=== PATIENT | female | born 1955 | race Caucasian/White ===

== ENCOUNTER 2019-11-21 09:08 | Day surgery (SDC) | payer MEDICARE, OTHER ==
[~2019-11-21 09:08] MED LIST: Lactated Ringers 1,000 ML IV SCH; Lidocaine 1% 4 ML ONE; Lidocaine 1%/Sod Bicarbonate in NS 8.4% 1 ML Syringe IDERM PRN; Midazolam 1 MG/ML 2 ML SDV ONE; Propofol 200 MG/20 ML SDV ONE; Sodium Chloride 0.9% 10 ML Syringe FLUSH PRN; fentaNYL 100 MCG/2 ML SDV ONE
--- NOTE | 2019-11-21 09:22 | PCM.PREANE ---
Preanesthetic Assessment - Procedure Proposed Procedure: egd and colonoscopy - Anesthesia/Transfusion/Family Hx Anesthesia History: Prior Anesthesia Without Reaction Family History of Anesthesia Reaction: No Transfusion History: No Prior Transfusion(s) - Review of Systems General: Chills (today) Pulmonary: Shortness of Breath (farmers lung), Wheezing, Cough Cardiovascular: No Symptoms Gastrointestinal: No Symptoms Neurological: No Symptoms Other: Reports: Thyroid Problems, Depression, Anxiety - Physical Assessment NPO Status Date: 11/20/19 NPO Status Time: 22:00 Vital Signs: 97.8 16 94-96% 63 158/91 Height: 5 ft 3 in Weight: 66 kg ASA Class: 3 Mental Status: Alert & Oriented x3 Airway Class: Mallampati = 1 Dentition: Reports: Normal Dentition, Broken Tooth/Teeth (some chipped) Thyro-Mental Finger Breadths: 3 Mouth Opening Finger Breadths: 3 ROM/Head Extension: Full Lungs: Clear to Auscultation, Normal Respiratory Effort Cardiovascular: Regular Rate, Regular Rhythm - Allergies Allergies/Adverse Reactions: Allergies Allergy/AdvReac Type Severity Reaction Status Date / Time Sulfa (Sulfonamide AdvReac Nausea and Verified 11/20/19 13:21 Antibiotics) Vomiting - Blood Blood Available: No - Acknowledgements Anesthesia Type Planned: MAC Pt an Appropriate Candidate for the Planned Anesthesia: Yes Alternatives and Risks of Anesthesia Discussed w Pt/Guardian: Yes Pt/Guardian Understands and Agrees with Anesthesia Plan: Yes PreAnesthesia Questionnaire HEENT History: Reports: Allergic Rhinitis Cardiovascular History: Reports: High Cholesterol Respiratory History: Reports: SOB Gastrointestinal History: Reports: None Genitourinary History: Reports: Other (See Below) Other Genitourinary History: RENAL MASS, KIDNEY STONES, URGE INCONTINENCE CANCER REGISTRAR History: Reports: None Musculoskeletal History: Reports: Fibromyalgia, Osteoporosis, Other (See Below) Other Musculoskeletal History: RIGHT WRIST PAIN, BILATERAL WRIST FRACTURE WITH ORIF AND THEN LATER HARDWARE REMOVAL Neurological History: Reports: None Psychiatric History: Reports: Depression Endocrine/Metabolic History: Reports: Hypothyroidism Hematologic History: Reports: None Immunologic History: Reports: None Oncologic (Cancer) History: Reports: None Dermatologic History: Reports: Other (See Below) Other Dermatologic History: LEFT AXILLARY LUMP - Past Surgical History Head Surgeries/Procedures: Reports: None HEENT Surgical History: Reports: None Cardiovascular Surgical History: Reports: None Respiratory Surgical History: Reports: None GI Surgical History: Reports: None Female Surgical History: Reports: Hysterectomy Male Surgical History: Reports: None Endocrine Surgical History: Reports: None Neurological Surgical History: Reports: None Musculoskeletal Surgical History: Reports: Other (See Below) (bilateral wrist surgeries) Oncologic Surgical History: Reports: None Dermatological Surgical History: Reports: None - SUBSTANCE USE Smoking Status *Q: Never Smoker Tobacco Use Within Last Twelve Months: No Second Hand Smoke Exposure: No Days Per Week of Alcohol Use: 0 Recreational Drug Use History: No - HOME MEDS Home Medications: Home Meds Albuterol Sulfate [Proair Hfa] 2 puff INH Q4H PRN 11/20/19 [History] Calcium Carb, Citrate/Vit D3 [Citracal + D ER] 1 tab PO DAILY 11/20/19 [History] Cranberry 500 mg PO DAILY 11/20/19 [History] Fluticasone Propionate [Flonase] 1 dose NASBOTH DAILY 11/20/19 [History] Glucosam/Chond-MSM 2/C/D3/Cyril [Buzydofpvx-Zvaiwxmmasd-ZUM] 1 tab PO DAILY 11/20/19 [History] Lactobacillus Combination No.4 [Probiotic] 1 cap PO DAILY 11/20/19 [History] Lactobacillus Combination No.4 [Probiotic] 2 cap PO DAILY 11/20/19 [History] Levothyroxine 25 mcg PO DAILY 11/20/19 [History] Multivitamin [Daily Multiple Vitamin] 1 tab PO DAILY 11/20/19 [History] Oxybutynin [Oxybutynin ER] 5 mg PO DAILY 11/20/19 [History] Psyllium Seed [Natural Vegetable Powder] 1 dose PO DAILY 11/20/19 [History] Sertraline HCl [Zoloft] 100 mg PO DAILY 11/20/19 [History] Vitamin B Complex [B Complex] 1 tab PO DAILY 11/20/19 [History] atorvaSTATin [Lipitor] 40 mg PO DAILY 11/20/19 [History] - CURRENT (IN HOUSE) MEDS Current Meds: Current Medications Lactated Ringer's (Ringers, Lactated) 1,000 mls @ 125 mls/hr IV ASDIRECTED KIMO Stop: 11/21/19 23:00 Lidocaine/Sodium Bicarbonate (Buffered Lidocaine 1% In Ns 8.4%) 0.25 ml IDERM ONETIME PRN PRN Reason: Prior to IV Start Stop: 11/21/19 18:00 Sodium Chloride (Saline Flush) 10 ml FLUSH ASDIRECTED PRN PRN Reason: Keep Vein Open Stop: 11/21/19 18:00 Discontinued Medications Fentanyl (Sublimaze) Confirm Administered Dose 100 mcg .ROUTE .STK-MED ONE Stop: 11/21/19 07:32 Lidocaine HCl (Xylocaine-Mpf 1%) Confirm Administered Dose 4 mls @ as directed .ROUTE .STK-MED ONE Stop: 11/21/19 07:32 Midazolam HCl (Versed 1 Mg/Ml) Confirm Administered Dose 2 mg .ROUTE .STK-MED ONE Stop: 11/21/19 07:32 Propofol (Diprivan 20 Ml) Confirm Administered Dose 400 mg .ROUTE .STK-MED ONE Stop: 11/21/19 07:32
[2019-11-21] MEDS ORDERED: Lidocaine 1% with EPINEPHrine 1:100,000 20 ML MDV ONE (09:25)
[2019-11-21] MEDS ORDERED: Propofol 200 MG/20 ML SDV ONE (10:34)
[2019-11-21] MEDS ORDERED: Ketorolac 15 MG/ML SDV ONE (10:36)
--- NOTE | 2019-11-21 11:03 | PCM.OPNOTE ---
- General Post-Op/Procedure Note Date of Surgery/Procedure: 11/21/19 Operative Procedure(s): EGD and colonoscopy with excision of anal skin tag Findings: 1. Antrum biopsy 2. Cecal polyp 3. Descending colon polyp 4. Melanosis coli 5. Anal skin tag Pre Op Diagnosis: Chronic cough, reflux, heartburn, anal and rectal pain, positive cologuard Post-Op Diagnosis: same Anesthesia Technique: MAC Primary Surgeon: Nirali Akhtar Anesthesia Provider: Deanne Warren Pathology: 1. Gastric antrum 2. Cecal polyp 3. Descending colon polyp 4. Anal skin tag Fluid Replacement, Intraop: 800 Output, Urine Amount: 0 EBL in mLs: 10 Complications: none apparent Condition: Good
--- NOTE | 2019-11-21 11:09 | PCM.PRNOTE ---
- Free Text/Narrative Note: Operative Report Date of Procedure: November 21, 2019 Pre Op Diagnosis: EGD and colonoscopy with excision of anal skin tag Post-Op Diagnosis: Same Operative Procedures: 1. EGD with biopsy 2. Colonoscopy to the cecum with biopsy Primary Surgeon: Nirali Akhtar MD Anesthesia Provider: Deanne Warren CRNA Anesthesia Technique: MAC IV Fluid Replacement, Intraop: 800cc crystalloid Output, Urine Amount: 0cc EBL in mLs: 10cc Findings: 1. Gastritis 2. Duodenitis 3. Cecal polyp 4. Descending colon polyp 5. Melanosis coli 6. Anal skin tag Specimens: 1. Gastric antrum 2. Cecal polyp 3. Descending colon polyp 4. Anal skin tag Drain/Tubes: None Indication: The patient is an 64-year-old lady who presented to the clinic with findings of Chronic cough, reflux, heartburn, anal and rectal pain, as well as a positive cologuard test. The patient was consented for a diagnostic EGD and colonoscopy. Risks of bleeding, and perforation were discussed, and the patient agreed to the risks and wished to proceed. Description of the procedure: The patient was taken back to the endoscopy suite, and placed in the left lateral decubitus position. A bite block was placed. The patient was sedated with MAC anesthesia. The Olympus video endoscope was inserted into the oropharynx and guided under direct vision into the esophagus, stomach, and duodenum. The duodenal bulb and second portion of the duodenum were remarkable for mild inflammation. The gastric antrum was inspected and cold biopsy forceps were used to take tissue samples for H. pylori. The scope was withdrawn to the stomach and retroflexed. There was erythema consistent with gastritis in the stomach. There was no increased fluid, food or secretions in the upper gastrointestinal tract. No erosions or ulcers were noted. The scope was withdrawn to the esophagus. No Fair�s esophagus changes were noted. The endoscope was then withdrawn Next, anorectal examination was performed. A large anal skin tag was noted externally on exam. The scope was placed into the rectum and advanced to cecum. Upon reaching the cecum, and the patient�s cecum was entered. There was minimal tortuosity of the colon. The ileocecal valve was well visualized and the appendiceal orifice identified. At this point, the scope was slowly withdrawn, paying attention to the mucosa. The patient had good bowel prep, 90-95% of the mucosa was visible. Diffuse melanosis coli was noted, with severe changes in the cecum and ascending colon. A 2mm polyp was seen in the cecum and removed with a jumbo cold biopsy forceps. In the rectum, scope was retroflexed and some hemorrhoidal tissue was noted. The scope was placed back in the lumen and excess air was aspirated. The scope was removed. The anal opening was then prepped with betadine. A anal block was performed with 10cc of 1% lidocaine with epinephrine. An additional 5cc was placed in the tissue under the skin tag. This was present in the posterior midline. The tissue was then dissected free from the surrounding anoderm and measured 1.2x1.5cm. The defect was re-approximated with 4-0 chromic suture. Dibucaine ointment and a dry dressing was applied. The patient tolerated the procedure very well. Complications: None apparent Condition: The patient was transported to PACU in stable condition. Nirali Akhtar MD General Surgery
--- NOTE | 2019-11-21 11:13 | PCM48HPAN ---
Post Anesthesia Note - EVALUATION WITHIN 48HRS OF ANESTHETIC Vital Signs in Normal Range: Yes Patient Participated in Evaluation: Yes Respiratory Function Stable: Yes Airway Patent: Yes Cardiovascular Function Stable: Yes Hydration Status Stable: Yes Pain Control Satisfactory: Yes Nausea and Vomiting Control Satisfactory: Yes Mental Status Recovered: Yes Vital Signs: Last Vital Signs Temp 98.1 F 11/21/19 11:00 Pulse 81 11/21/19 11:00 Resp 16 11/21/19 11:00 BP 113/68 11/21/19 11:00 Pulse Ox 94 L 11/21/19 11:00
== END 2019-11-21 12:45 | disposition home or self-care (01) ==
LOC: JD.SDS 09:08
PROVIDERS: ATTEND Surgery
DX: D12.0 Benign neoplasm of cecum (principal); K64.4 Residual hemorrhoidal skin tags; K63.89 Other specified diseases of intestine; K29.90 Gastroduodenitis, unspecified, without bleeding; Q43.8 Other specified congenital malformations of intestine; E78.00 Pure hypercholesterolemia, unspecified; E78.5 Hyperlipidemia, unspecified; E03.9 Hypothyroidism, unspecified; F32.9 Major depressive disorder, single episode, unspecified; Z79.890 Hormone replacement therapy; Z88.2 Allergy status to sulfonamides; Z79.899 Other long term (current) drug therapy
CPT/HCPCS: 43239; 45380; 46999; A9270; J1885; J2001; J2250; J2704; J3010; J7120; 00813